=== PATIENT | male | born 1975 | race Caucasian/White ===

== ENCOUNTER 2017-05-09 06:12 | Emergency (ER) | payer BC, OTHER ==
[2017-05-09] MEDS ORDERED: Sodium Chloride 0.9% 1,000 ML IV ONE (06:39)
--- NOTE | 2017-05-09 06:46 | EDM.PDOC ---
ED HPI GENERAL MEDICAL PROBLEM - General Chief Complaint: Genitourinary Problem Stated Complaint: LOWER ABDOMINAL PAIN Time Seen by Provider: 05/09/17 06:40 Source of Information: Reports: Patient - History of Present Illness INITIAL COMMENTS - FREE TEXT/NARRATIVE: HISTORY AND PHYSICAL: History of present illness: Patient presents with left lower quadrant pain radiating to the groin, he has a history of passing a renal stone 15 years prior. He had no pain when he went to bed pain awoke him from sleep no fever nausea vomiting chills sweats no chest pain shortness breath headache dizziness palpitation about a urine symptoms originally pain was 8 out of 10 for short period before coming to the emergency room currently 2 out of 10 Review of systems: As per history of present illness and below otherwise all systems reviewed and negative. Past medical history: As per history of present illness and as reviewed below otherwise noncontributory. Surgical history: As per history of present illness and as reviewed below otherwise noncontributory. Social history: No reported history of drug or alcohol abuse. Family history: As per history of present illness and as reviewed below otherwise noncontributory. Physical exam: HEENT: Atraumatic, normocephalic, pupils reactive, negative for conjunctival pallor or scleral icterus, mucous membranes moist, throat clear, neck supple, nontender, trachea midline. Lungs: Clear to auscultation, breath sounds equal bilaterally, chest nontender. Heart: S1S2, regular, negative for clicks, rubs, or JVD. Abdomen: Soft, nondistended, nontender. Negative for masses or hepatosplenomegaly. Negative for costovertebral tenderness. Pelvis: Stable nontender. Genitourinary: No mass scar or lesion testicles within normal limits does have week inguinal rings no obvious hernia appreciated Rectal: Deferred. Extremities: Atraumatic, negative for cords or calf pain. Neurovascular unremarkable. Neuro: Awake, alert, oriented. Cranial nerves II through XII unremarkable. Cerebellum unremarkable. Motor and sensory unremarkable throughout. Exam nonfocal. Musculoskeletal i can reproduce some pain with palp of gracillus muscle on left thigh Diagnostics: []CBC, CMP, UA, urine culture CT abdomen pelvis with and without contrast Therapeutics: []None at this time as patient symptoms have improved Impression: []Left lower quadrant pain radiating to the groin There is mild groin strain and spasm of gracilis on left thigh near insertion No obvious hernia appreciated although he does have week inguinal rings Unfortunately patient will have to be signed out to Dr. Diaz to follow lab and imaging and redirect and disposition based on her evaluation and treatment Definitive disposition and diagnosis as appropriate pending reevaluation and review of above. left inguinal area Pain Score (Numeric/FACES): 10 - Related Data Allergies Allergy/AdvReac Type Severity Reaction Status Date / Time No Known Allergies Allergy Verified 05/09/17 06:23 Home Meds: Home Meds . [No Known Home Meds] 01/11/14 [History] Past Medical History - Past Health History Medical/Surgical History: Denies Medical/Surgical History HEENT History: Reports: None Cardiovascular History: Reports: None Respiratory History: Reports: None Gastrointestinal History: Reports: None Genitourinary History: Reports: None Musculoskeletal History: Reports: None Neurological History: Reports: None Psychiatric History: Reports: None Endocrine/Metabolic History: Reports: None Hematologic History: Reports: None Immunologic History: Reports: None Oncologic (Cancer) History: Reports: None Dermatologic History: Reports: None - Infectious Disease History Infectious Disease History: Reports: None - Past Surgical History Head Surgeries/Procedures: Reports: None Male Surgical History: Reports: None Social & Family History - Family History Family Medical History: Noncontributory - Tobacco Use Smoking Status *Q: Never Smoker Second Hand Smoke Exposure: No - Caffeine Use Caffeine Use: Reports: Coffee, Energy Drinks - Alcohol Use Days Per Week of Alcohol Use: 0 - Recreational Drug Use Recreational Drug Use: No ED ROS GENERAL - Review of Systems Review Of Systems: ROS reveals no pertinent complaints other than HPI. ED EXAM, GENERAL - Physical Exam Exam: See Below Course - Vital Signs Last Recorded V/S: Last Vital Signs Temp 36.4 C 05/09/17 06:23 Pulse 75 05/09/17 06:23 Resp 18 05/09/17 06:23 BP 154/85 H 05/09/17 06:23 Pulse Ox 96 05/09/17 06:23 - Orders/Labs/Meds Orders: Active Orders 24 hr Category Date Time Status Abdomen Pelvis w wo Cont [CT] Stat Exams 05/09/17 06:37 Ordered CBC WITH AUTO DIFF [HEME] Stat Lab 05/09/17 06:37 Ordered COMPREHENSIVE METABOLIC PN,CMP [CHEM] Stat Lab 05/09/17 06:37 Ordered CULTURE URINE [RM] Stat Lab 05/09/17 06:37 Uncollected UA W/MICROSCOPIC [URIN] Stat Lab 05/09/17 06:37 Uncollected Sodium Chloride 0.9% [Normal Saline] 1,000 ml Med 05/09/17 06:39 Ordered IV STAT Medication Orders Sodium Chloride (Normal Saline) 1,000 mls @ 999 mls/hr IV STAT ONE Stop: 05/09/17 07:39 Last Admin: 05/09/17 06:45 Dose: 999 mls/hr Meds: Medications Generic Name Dose Route Start Last Admin Trade Name Freq PRN Reason Stop Dose Admin Sodium Chloride 1,000 mls @ 999 mls/hr 05/09/17 06:39 05/09/17 06:45 Normal Saline IV 05/09/17 07:39 999 mls/hr STAT ONE Administration Departure - Departure Time of Disposition: 06:46 Disposition: Still A Patient 30 Condition: Good Clinical Impression: Left lower quadrant pain - Discharge Information Forms: ED Department Discharge - My Orders Last 24 Hours: My Active Orders 05/09/17 06:37 Abdomen Pelvis w wo Cont [CT] Stat CBC WITH AUTO DIFF [HEME] Stat COMPREHENSIVE METABOLIC PN,CMP [CHEM] Stat CULTURE URINE [RM] Stat UA W/MICROSCOPIC [URIN] Stat 05/09/17 06:39 Sodium Chloride 0.9% [Normal Saline] 1,000 ml IV STAT - Assessment/Plan Last 24 Hours: My Active Orders 05/09/17 06:37 Abdomen Pelvis w wo Cont [CT] Stat CBC WITH AUTO DIFF [HEME] Stat COMPREHENSIVE METABOLIC PN,CMP [CHEM] Stat CULTURE URINE [RM] Stat UA W/MICROSCOPIC [URIN] Stat 05/09/17 06:39 Sodium Chloride 0.9% [Normal Saline] 1,000 ml IV STAT
[2017-05-09 07:11] LABS: CHLORIDE,CL 107 mmol/L (98-110); SODIUM,NA 142 mmol/L (136-146)
[2017-05-09] MEDS ORDERED: Iopamidol 755 MG/ML 500 ML Multipack Bottle IVPUSH ONE (07:42)
--- NOTE | 2017-05-09 08:12 | CT ---
CT abdomen and pelvis with and without intravenous contrast Multiple computed tomographic sections the abdomen and pelvis were obtained with and without intrave nous contrast the latter in the form of [id number] 100 mL intravenously. Findings: Lung bases and lower chest: the lung bases are clear. No cardiac abnormalities are seen in the lower portion of the heart Liver biliary tract pancreas and spleen: The liver is homogeneous and exhibits hepatic steatosis. Th ere is no splenomegaly or definite pancreatic abnormality. Gallbladder contains no visible calculi. Kidneys adrenals and retroperitoneum: There is no hydronephrosis or hydroureter or distal renal calc ulus. Contrast-enhanced images show no suggestion of a solid renal mass. No adrenal mass. No retrope ritoneal adenopathy. Bowel and mesentery: There is no evidence of a dilated tubular appendix. There is minimal diverticul osis. No pericolonic inflammation to suggest diverticulitis. Abdominal wall: There is no significant abnormality including no inguinal abnormality Pelvic organs and lymph nodes: no significant prostate enlargement and no mass or adenopathy. Skeleton: No aggressive bony lesions and no evidence of acute trauma Impression: Hepatic steatosis with no other significant findings to explain patient's current pain c omplex
[2017-05-09 08:34] VITALS: BP 105/59
== END 2017-05-09 08:36 | disposition home or self-care (01) ==
LOC: MW.ED 06:12
DX: R10.32 Left lower quadrant pain (principal)
CPT/HCPCS: 36415; 74178; 80053; 81001; 85025; 87086; 96360; 96361; 99284; J7040; Q9967